=== PATIENT | female | born 1985 | race Caucasian/White ===

== ENCOUNTER 2019-10-26 20:43 | Emergency (ER) | payer BC, OTHER ==
[~2019-10-26] VITALS: Ht 157.5 cm; Wt 85.3 kg
--- NOTE | 2019-10-26 23:44 | NUR ---
THIS IS A 34 YO FEMALE COMING IN FOR LEFT SIDED "LUNG PAIN" AND GENERAL FATIGUE. PATIENT WAS DX WITH PNA 2 MONTHS AGO, DISCHARGED ON ABX TREATMENT, TESTED NEGATIVE FOR COVID AT THE TIME. SYMPTOMS STARTED TO RESOLVE, PATIENT WENT BACK TO WORK LAST WEEK, INCREASED FATIGUE AND WORSENED SYMPTOMS. WEDNESDAY PATIENT WENT TO COVID TENT, WAS NOT TESTED BUT SENT HOME WITH MORE ABX, INHALER, AND STEROID TX. PATIENT HERE TODAY FOR ONGOING SYMPTOMS. DENIES CP, STATES MILD SOB AND COUGH, MAIN COMPLAIN IS "MY LEFT LUNG HURTS". RESPIRATIONS EVEN AND UNLABORED, LUNG SOUNDS CLEAR THROUGHOUT. 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 CALL LIGHT IN REACH
[2019-10-27 00:29] LABS: BASOPHILS # (AUTO) 0.04 x10^3/uL (0-0.1); BASOPHILS % (AUTO) 0 % (0-1); EOSINOPHILS # (AUTO) 0.06 x10^3/uL (0-0.4); EOSINOPHILS % (AUTO) 1 % (1-7); LYMPHOCYTES # (AUTO) 2.64 x10^3/uL (1-3.4); LYMPHOCYTES % (AUTO) 29 % (22-44); MD NO; MEAN CORPUSCULAR HEMOGLOBIN 32.5 pg (27.0-34.8); MEAN CORPUSCULAR HGB CONC 33.8 g/dL (32.4-35.8); MEAN CORPUSCULAR VOLUME 95.9 fL (80-100); MEAN PLATELET VOLUME 9.2 fL (7.4-10.4); MONOCYTES # (AUTO) 0.56 x10^3/uL (0.2-0.8); MONOCYTES % (AUTO) 6 % (2-9); NEUTROPHILS # (AUTO) 5.74 x10^3/uL (1.8-6.8); NEUTROPHILS % (AUTO) 64 % (42-75); PLATELET COUNT 301 x10^3/uL (130-400); RED BLOOD COUNT 4.57 x10^6/uL (3.82-5.3); RED CELL DISTRIBUTION WIDTH 12.8 % (9.6-15.2)
--- NOTE | 2019-10-27 00:35 | NUR ---
PATIENT RESTING ON GURNEY, RESPIRATIONS EVEN AND UNLABORED ,VSS, ALL MONITORING IN PLACE, CALL LIGHT IN REACH
[2019-10-27 00:36] VITALS: BP 134/77
[2019-10-27 00:36] LABS: ALANINE AMINOTRANSFERASE 23 U/L (12-78); ALBUMIN 4.3 g/dL (3.4-5.0); ANION GAP 7 mmol/L (5-15); CALCIUM 8.9 mg/dL (8.5-10.1); CHLORIDE 107 mmol/L (98-107); CREATININE 0.83 mg/dL (0.55-1.02)
[2019-10-27 00:41] LABS: ALKALINE PHOSPHATASE 49 U/L (45-117); BILIRUBIN,TOTAL 0.5 mg/dL (0.2-1.0); TOTAL PROTEIN 7.4 g/dL (6.4-8.2); TROPONIN I < 0.015 ng/mL (0.000-0.045)
--- NOTE | 2019-10-27 01:16 | NUR ---
Patient given discharge instructions and they have confirmed that they understand the instructions. Patient ambulatory with steady gait.
== END 2019-10-27 01:28 | disposition home or self-care (01) ==
LOC: ED 10-27 01:26
DX: R53.1 Weakness (principal); R05 Cough; R07.89 Other chest pain; R94.31 Abnormal electrocardiogram [ECG] [EKG]
CPT/HCPCS: 36415; 71045; 80053; 84443; 84484; 84703; 85025; 93005; 99285